=== PATIENT | female | born 1975 | race Two or more races ===

== ENCOUNTER 2024-04-04 14:50 | Outpatient (CLI) | payer BC | END 2024-04-04 14:51 | disposition home or self-care (01) | LOC: CSHULT 14:50 | PROVIDERS: ATTEND Family Medicine | DX: R10.9 Unspecified abdominal pain (principal); K76.0 Fatty (change of) liver, not elsewhere classified; K80.20 Calculus of gallbladder without cholecystitis without obstruction; K82.8 Other specified diseases of gallbladder | CPT/HCPCS: 76700 ==

== ENCOUNTER 2024-06-27 15:28 | Outpatient (CLI) | payer BC | END 2024-06-27 15:29 | disposition home or self-care (01) | LOC: CSHMAMMO 15:28 | PROVIDERS: ATTEND Obstetrics & Gynecology | DX: Z12.31 Encounter for screening mammogram for malignant neoplasm of breast (principal) | CPT/HCPCS: 77063; 77067 ==